=== PATIENT | female | born 1955 | race Caucasian/White ===

== ENCOUNTER → 2024-02-16 11:29 | Outpatient (REF) | payer MEDICARE, SELFPAY | LOC: DHCBC/DCA 11:29 | PROVIDERS: ATTENDING PHYSICIAN Internal Medicine Cardiovascular Disease; FAMILY PHYSICIAN Family Medicine | DX: I25.10 Atherosclerotic heart disease of native coronary artery without angina pectoris (principal); I10 Essential (primary) hypertension; R07.89 Other chest pain | CPT/HCPCS: 78452; 93017; A9500; J2785 ==

== ENCOUNTER 2024-03-07 10:29 | Outpatient (RCR) | payer MEDICARE, SELFPAY ==
[2024-03-07 10:50] VITALS: BP 170/89
[2024-03-07] MEDS: LEQVIO 284 MG SC (11:08)
== END 2024-03-08 10:02 | disposition home or self-care (01) ==
LOC: OID 10:29
PROVIDERS: ATTENDING PHYSICIAN Internal Medicine Cardiovascular Disease; FAMILY PHYSICIAN Family Medicine
DX: E78.5 Hyperlipidemia, unspecified (principal); I25.10 Atherosclerotic heart disease of native coronary artery without angina pectoris; I10 Essential (primary) hypertension; R91.8 Other nonspecific abnormal finding of lung field; F41.9 Anxiety disorder, unspecified
CPT/HCPCS: 96372; J1306

== ENCOUNTER 2024-05-30 10:28 | Outpatient (RCR) | payer MEDICARE, SELFPAY ==
[2024-05-30 10:35] VITALS: BP 161/71
[2024-05-30] MEDS: LEQVIO 284 MG SC (10:52)
== END 2024-06-09 23:59 | disposition home or self-care (01) ==
LOC: OID 10:28
PROVIDERS: ATTENDING PHYSICIAN Internal Medicine Cardiovascular Disease; FAMILY PHYSICIAN Family Medicine
DX: I10 Essential (primary) hypertension (principal); E78.5 Hyperlipidemia, unspecified; R91.8 Other nonspecific abnormal finding of lung field
CPT/HCPCS: 96372; J1306

== ENCOUNTER → 2024-11-02 12:46 | Outpatient (REF) | payer MEDICARE, SELFPAY | LOC: HWRCS 12:46 | PROVIDERS: ATTENDING PHYSICIAN Internal Medicine Cardiovascular Disease; FAMILY PHYSICIAN Family Medicine | DX: I10 Essential (primary) hypertension (principal); R00.2 Palpitations | CPT/HCPCS: 93306 ==

== ENCOUNTER 2024-11-27 09:45 | Outpatient (RCR) | payer MEDICARE, SELFPAY ==
[2024-11-27 10:10] VITALS: BP 150/71
[2024-11-27] MEDS: LEQVIO 284 MG SC (10:27)
== END 2024-11-28 11:07 | disposition home or self-care (01) ==
LOC: OID 09:45
PROVIDERS: ATTENDING PHYSICIAN Internal Medicine Cardiovascular Disease; FAMILY PHYSICIAN Family Medicine
DX: E78.5 Hyperlipidemia, unspecified (principal); I25.10 Atherosclerotic heart disease of native coronary artery without angina pectoris; I10 Essential (primary) hypertension; R91.8 Other nonspecific abnormal finding of lung field
CPT/HCPCS: 96372; J1306

== ENCOUNTER 2025-05-29 09:53 | Outpatient (RCR) | payer MEDICARE, SELFPAY ==
[2025-05-29 10:13] VITALS: BP 153/78
[2025-05-29] MEDS: LEQVIO 284 MG SC (10:21)
[2025-05-29 10:30] VITALS: BP 136/58
== END 2025-05-30 12:37 | disposition home or self-care (01) ==
LOC: OID 09:53
PROVIDERS: ATTENDING PHYSICIAN Internal Medicine Cardiovascular Disease; FAMILY PHYSICIAN Family Medicine
DX: E78.5 Hyperlipidemia, unspecified (principal); I25.10 Atherosclerotic heart disease of native coronary artery without angina pectoris
CPT/HCPCS: 96372; J1306